=== PATIENT | male | born 1955 | race Hispanic/Latino ===

== ENCOUNTER 2025-02-15 06:52 | Inpatient (IN) | payer OTHER ==
[2025-02-11 16:40] LABS: BASOPHILS % 0.5 % (0.0-1.0); EOSINOPHILS % 3.8 % (0.0-6.0); LYMPHOCYTES % 29.8 % (18.0-39.1); MONOCYTES % 9.4 % (4.4-11.3); NEUTROPHILS % 56.3 % (38.7-80.0); RED CELL DISTRIBUTION WIDTH 16.0 % (11.7-14.4)
[2025-02-11 16:59] LABS: EST GLOMERULAR FILTRATION RATE 41.0 ML/MIN (>=60)
[~2025-02-15] VITALS: Ht 170.2 cm; Wt 93.9 kg
[~2025-02-15 06:52] MED LIST: AMLODIPINE-VAL1 EAC3 PO; FENOFIBRATE160 MG PO; FERROUS SULFAT325 MG PO; FINASTERIDE5 MG PO; FLOMAX0.4 MG PO; LEVOTHYROXINE88 MCG PO; OMEGA XL PO; OMEPRAZOLE20 MG PO; TUMERIC PO
[2025-02-15] MEDS: CEFTRIAXONE 1 GM VIAL ONE (07:47)
[2025-02-15] MEDS: SODIUM CHLORIDE 0.9% 1000ML 1,000 ML ONE (07:47)
[2025-02-15] MEDS: GENTAMICIN 80MG/NS 100 ML 200 ML IV ONE (07:48)
[2025-02-15] MEDS ORDERED: LIDOCAINE HCL 2% LOCAL INJ 5 ML SDV VIAL INJ ONE (09:38)
[2025-02-15] MEDS ORDERED: PROPOFOL IV EMULSION 10 MG/ML 20 ML VIAL ONE (09:38)
[2025-02-15] MEDS ORDERED: FENTANYL CITRATE/PF 100MCG/2 ML INJ ONE (09:38)
[2025-02-15] MEDS ORDERED: ROCURONIUM BROMIDE 1 ML IV ONE ×2 (09:38→09:43)
[2025-02-15] MEDS ORDERED: ONDANSETRON HCL INJ 2MG/ML 2ML 2 MG/ML VIAL ONE (09:43)
[2025-02-15] MEDS ORDERED: DEXAMETHASONE SOD PHOS INJ 4 MG/ML SDV ONE (09:43)
[2025-02-15] MEDS ORDERED: ACETAMINOPHEN 1000 MG/100 ML 100 ML IV ONE (09:45)
[2025-02-15] MEDS ORDERED: EPHEDRINE SULFATE INJ 50 MG/ML VIAL ONE (09:45)
[2025-02-15] MEDS ORDERED: PHENYLEPHRINE HCL 1% 10 MG/ML VIAL ONE (09:53)
[2025-02-15] MEDS ORDERED: SUGAMMADEX SODIUM 200 MG/2 ML VIAL IV ONE (10:38)
[2025-02-15] MEDS ORDERED: ONDANSETRON HCL INJ 2MG/ML 2ML 2 MG/ML VIAL IV PRN (11:15)
[2025-02-15] MEDS ORDERED: DIPHENHYDRAMINE HCL 25 MG CAP PO PRN (11:15)
[2025-02-15] MEDS ORDERED: PHENAZOPYRIDINE HCL 100 MG TAB PO PRN (11:15)
[2025-02-15] MEDS ORDERED: ACETAMINOPHEN 1000 MG/100 ML IV PRN (11:15)
[2025-02-15 12:12] LABS: BASOPHILS % 0.4 % (0.0-1.0); EOSINOPHILS % 1.5 % (0.0-6.0); LYMPHOCYTES % 17.1 % (18.0-39.1); MONOCYTES % 2.7 % (4.4-11.3); NEUTROPHILS % 77.9 % (38.7-80.0); RED CELL DISTRIBUTION WIDTH 16.0 % (11.7-14.4)
[2025-02-15 12:59] LABS: EST GLOMERULAR FILTRATION RATE 62.0 ML/MIN (>=60)
[2025-02-15 13:13] VITALS: BP 116/76; PULSE 76; RESP 18; TEMP 97.3; O2SAT 97
[2025-02-15 13:24] VITALS: BP 116/76; PULSE 76; RESP 18; TEMP 97.3; O2SAT 97
[2025-02-15] MEDS: SODIUM CHLORIDE 0.9% 1000ML 1,000 ML IV SCH (14:43)
[2025-02-15 16:00] VITALS: BP 133/80; PULSE 74; RESP 18; TEMP 97.4; O2SAT 97
[2025-02-15] MEDS: SENNA-S TABLET PO SCH (17:24)
[2025-02-15 20:00] VITALS: BP 142/82; PULSE 86; RESP 20; TEMP 98; TEMP 98.6; O2SAT 95
[2025-02-15] MEDS ORDERED: SEVOFLURANE INHAL SOLN 250 ML PEN BTL ONE (22:46)
[2025-02-16] VITALS: BP 123/71; PULSE 79; RESP 18; TEMP 98.1; O2SAT 96
[2025-02-16 04:00] VITALS: BP 121/63; PULSE 74; RESP 18; TEMP 97.6; O2SAT 94
[2025-02-16 07:11] LABS: BASOPHILS % 0.2 % (0.0-1.0); EOSINOPHILS % 0.9 % (0.0-6.0); LYMPHOCYTES % 17.9 % (18.0-39.1); MONOCYTES % 8.0 % (4.4-11.3); NEUTROPHILS % 72.7 % (38.7-80.0); RED CELL DISTRIBUTION WIDTH 16.2 % (11.7-14.4)
[2025-02-16 07:26] LABS: EST GLOMERULAR FILTRATION RATE 65.0 ML/MIN (>=60)
[2025-02-16 07:46] VITALS: BP 149/88; PULSE 64; RESP 16; TEMP 98; O2SAT 96
[2025-02-16] MEDS: CEFTRIAXONE 1 GM VIAL ONE (08:51)
[2025-02-16 16:30] VITALS: BP 146/82; PULSE 68; RESP 18; TEMP 98.4
[2025-02-16 20:00] VITALS: BP 154/87; PULSE 77; RESP 18; TEMP 98.3; O2SAT 98
[2025-02-17] VITALS (8 sets, daily range): BP systolic 133–166; BP diastolic 85–95; PULSE 74–101; RESP 16–20; TEMP 97.3–98.5; O2SAT 95–98
[2025-02-17] MEDS ORDERED: ACETAMINOPHEN 325 MG TAB PO PRN (08:15)
[2025-02-17] MEDS ORDERED: TEMAZEPAM 15 MG CAP PO PRN (08:15)
[2025-02-17] MEDS ORDERED: HYDRALAZINE HCL 20 MG/ML VIAL IV PRN (08:15)
[2025-02-17 08:21] LABS: BASOPHILS % 0.2 % (0.0-1.0); EOSINOPHILS % 1.6 % (0.0-6.0); LYMPHOCYTES % 12.0 % (18.0-39.1); MONOCYTES % 7.1 % (4.4-11.3); NEUTROPHILS % 78.8 % (38.7-80.0); RED CELL DISTRIBUTION WIDTH 16.2 % (11.7-14.4)
[2025-02-17 08:26] LABS: EST GLOMERULAR FILTRATION RATE 68.0 ML/MIN (>=60)
[2025-02-17] MEDS: AMLODIPINE BESYLATE 10 MG TAB PO SCH (08:41)
[2025-02-17] MEDS: LEVOTHYROXINE SODIUM 88 MCG TAB PO SCH (08:41)
[2025-02-17] MEDS: VALSARTAN 160 MG TAB PO SCH (08:42)
[2025-02-17] MEDS: FINASTERIDE 5 MG TAB PO SCH (08:42)
[2025-02-17] MEDS: ACETAMINOPHEN/CODEINE 300MG - 30MG TAB PO PRN (13:07)
[2025-02-17] MEDS: TAMSULOSIN HCL 0.4 MG CAP PO SCH (17:34)
[2025-02-18] VITALS (10 sets, daily range): BP systolic 113–148; BP diastolic 71–83; PULSE 86–105; RESP 16–19; TEMP 97.3–98.4; O2SAT 95–99
[2025-02-18 05:38] LABS: BASOPHILS % 0.3 % (0.0-1.0); EOSINOPHILS % 0.8 % (0.0-6.0); LYMPHOCYTES % 19.6 % (18.0-39.1); MONOCYTES % 11.0 % (4.4-11.3); NEUTROPHILS % 68.0 % (38.7-80.0); RED CELL DISTRIBUTION WIDTH 15.9 % (11.7-14.4)
[2025-02-18 06:26] LABS: EST GLOMERULAR FILTRATION RATE 69.0 ML/MIN (>=60)
[2025-02-19] VITALS: BP 98/65; PULSE 86; RESP 17; TEMP 97.7; O2SAT 97
[2025-02-19 04:00] VITALS: BP 105/64; PULSE 82; RESP 17; TEMP 98.2; O2SAT 97
[2025-02-19 06:12] LABS: BASOPHILS % 0.3 % (0.0-1.0); EOSINOPHILS % 1.8 % (0.0-6.0); LYMPHOCYTES % 17.5 % (18.0-39.1); MONOCYTES % 11.4 % (4.4-11.3); NEUTROPHILS % 68.7 % (38.7-80.0); RED CELL DISTRIBUTION WIDTH 15.9 % (11.7-14.4)
[2025-02-19 06:50] LABS: EST GLOMERULAR FILTRATION RATE 50.0 ML/MIN (>=60)
[2025-02-19 07:38] VITALS: PULSE 78; RESP 16; O2SAT 100
[2025-02-19 07:44] VITALS: BP 121/63; PULSE 84; RESP 16; TEMP 97.4; O2SAT 97
[2025-02-19 08:00] VITALS: BP 121/63; PULSE 84; RESP 16; TEMP 97.4; O2SAT 97
[2025-02-19 11:26] VITALS: BP 114/68; PULSE 83; RESP 17; TEMP 97.1; O2SAT 98
== END 2025-02-19 12:05 | disposition home or self-care (01) | DRG 713 ==
LOC: OR 06:52 → PACU V 11:24 → MED/SURG3 13:17
PROVIDERS: ADMIT Internal Medicine; ATTEND Internal Medicine
PROC: 0T7D8ZZ Dilation of Urethra, Via Natural or Artificial Opening Endoscopic (ICD-10-PCS; 2025-02-15)
PROC: 0T9B70Z Drainage of Bladder with Drainage Device, Via Natural or Artificial Opening (ICD-10-PCS; 2025-02-15)
PROC: BT141ZZ Fluoroscopy of Kidneys, Ureters and Bladder using Low Osmolar Contrast (ICD-10-PCS; 2025-02-15)
PROC: 0VB08ZZ Excision of Prostate, Via Natural or Artificial Opening Endoscopic (ICD-10-PCS; principal; 2025-02-15 09:24)
DX: N40.1 Benign prostatic hyperplasia with lower urinary tract symptoms (principal); N13.30 Unspecified hydronephrosis; N13.8 Other obstructive and reflux uropathy; I10 Essential (primary) hypertension; R39.14 Feeling of incomplete bladder emptying; N35.916 Unspecified urethral stricture, male, overlapping sites; R31.0 Gross hematuria; Z68.32 Body mass index [BMI] 32.0-32.9, adult
CPT/HCPCS: 36415; 71046; 74420; 80048; 83735; 85025; 87086; 88305; 93005; 93970; 94799; C1758; J0696; J1100; J1580; J2003; J2371; J2405; J7030